=== PATIENT | male | born 1990 | race African-American/Black ===

== ENCOUNTER 2017-11-19 10:10 | Emergency (ER) | payer OTHER ==
[~2017-11-19] VITALS: Ht 165.1 cm; Wt 62.2 kg
[2017-11-19 10:31] VITALS: BP 118/64
== END 2017-11-19 11:23 | disposition home or self-care (01) ==
LOC: ED 10:10
DX: M25.511 Pain in right shoulder (principal); M25.532 Pain in left wrist; V89.2XXA Person injured in unspecified motor-vehicle accident, traffic, initial encounter; Y93.89 Activity, other specified; Y92.89 Other specified places as the place of occurrence of the external cause; Y99.8 Other external cause status
CPT/HCPCS: J1885

== ENCOUNTER 2020-10-27 11:07 | Emergency (ER) | payer OTHER ==
[~2020-10-27] VITALS: Ht 165.1 cm; Wt 66.7 kg
[2020-10-27 11:11] VITALS: Ht 165.1 cm; Wt 66.7 kg
[2020-10-27 11:50] VITALS: BP 110/75
== END 2020-10-27 11:50 | disposition home or self-care (01) ==
LOC: ED 11:07
DX: S56.493A Other injury of extensor muscle, fascia and tendon of right middle finger at forearm level, initial encounter (principal); X58.XXXA Exposure to other specified factors, initial encounter; Y93.89 Activity, other specified; Y92.89 Other specified places as the place of occurrence of the external cause; Y99.8 Other external cause status
CPT/HCPCS: 90715